=== PATIENT | female | born 2000 | race Caucasian/White ===

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

== ENCOUNTER 2022-02-21 08:04 | Outpatient (CLI) | payer BC | END 2022-02-21 08:05 | disposition home or self-care (01) | LOC: BICULT 08:04 | PROVIDERS: ATTEND Physician Assistant | DX: N63.10 Unspecified lump in the right breast, unspecified quadrant (principal) ==

== ENCOUNTER 2022-03-28 08:29 | Outpatient (CLI) | payer BC ==
[2022-03-28 09:29] LABS: BHCG - Serum Negative (NEGATIVE); Pregs Control Background? CLEAR/WHITE (CLR/WHITE); Pregs Control Bar Appear? YES (CONTROL BAR)
[2022-03-28 09:33] LABS: #Eosinphils 0.4 10x3/uL (0.0-0.5); #Monocytes 0.5 10x3/uL (0.0-1.1); #Neutrophils 2.7 10x3/uL (1.5-8.4); %Basophils 0.7 % (0.0-2.0); %Eosinophils 6.2 % (0.0-6.0); %Monocytes 8.4 % (0.0-10.0); %Neutrophils 44.5 % (40.0-75.0); Anion Gap 11 mmol/L (10-20); BUN (Urea Nitrogen) 9 mg/dL (7.0-18.7); Calc. Creatinine Clearance 0 mL/min (70-130); Calcium 9.5 mg/dL (7.8-10.44); Carbon Dioxide 24 mmol/L (22-29); Chloride 106 mmol/L (98-107); Estimated GFR 117; Glucose 92 mg/dL (70-105); Hemoglobin 11.6 g/dL (12.0-15.5); Mean Corpuscular HGB CONC 33.5 g/dL (32.0-36.0); Mean Corpuscular Hemoglobin 28.9 pg (27.0-33.0); Mean Corpuscular Volume 86.3 fl (81.6-98.3); Mean Platelet Volume 8.4 fl (7.4-10.4); Platelet Count 325 10x3/uL (150-450); Potassium 4.1 mmol/L (3.5-5.1); RBC Distribution Width 12.4 % (11.5-14.5); Red Blood Cell (RBC) Count 4.01 10x6/uL (3.90-5.03); Sodium 137 mmol/L (136-145)
== END 2022-03-28 08:30 | disposition home or self-care (01) ==
LOC: LABBT 08:29
PROVIDERS: ATTEND Specialist
DX: Z01.812 Encounter for preprocedural laboratory examination (principal); D24.1 Benign neoplasm of right breast
CPT/HCPCS: 80048; 84703; 85025

== ENCOUNTER 2022-04-04 05:49 | Day surgery (SDC) | payer BC ==
[2022-04-03 09:14] VITALS: BMI 19.9
[2022-04-04] MEDS ORDERED: Acetaminophen 500 MG TAB ONE (06:11)
[2022-04-04] MEDS ORDERED: Ketorolac Tromethamine 30 MG/ML VIAL ONE (06:11)
[2022-04-04] MEDS ORDERED: Midazolam HCl 2 mg/2 ml Vial ONE (06:15)
[2022-04-04] MEDS ORDERED: Fentanyl 250 MCG/5 ML VIAL ONE (06:15)
[2022-04-04] MEDS ORDERED: Isosulfan Blue 50 MG/5 ML VIAL ONE (07:08)
[2022-04-04] MEDS ORDERED: Lidocaine 1% (PF) 30 ML VIAL ONE (07:08)
[2022-04-04] MEDS ORDERED: Bupivacaine/Epinephrine 0.25% 30 ML VIAL ONE (07:08)
[2022-04-04] MEDS ORDERED: Sodium Chloride 0.9% 100 ML ONE (07:31)
[2022-04-04] MEDS ORDERED: CEFAZOLIN 2 GM VIAL ONE (07:31)
[2022-04-04] MEDS ORDERED: PROPOFOL 200 MG/20 ML VIAL ONE (07:38)
[2022-04-04] MEDS ORDERED: Dexamethasone 20 MG/5 ML VIAL ONE (07:38)
[2022-04-04] MEDS ORDERED: Ondansetron PF 4 MG/2 ML Vial ONE (07:38)
== END 2022-04-04 09:45 | disposition home or self-care (01) ==
LOC: SDC 05:49
PROVIDERS: ATTEND Specialist
PROC: 0HBT0ZZ Excision of Right Breast, Open Approach (ICD-10-PCS; principal; 2022-04-04)
DX: D24.1 Benign neoplasm of right breast (principal); Z91.010 Allergy to peanuts; Z91.018 Allergy to other foods
CPT/HCPCS: 88305; C1713; J1100; J1885; J2001; J2250; J2405; J2704; J3010; J3490; Q9968